=== PATIENT | female | born 1995 | race Caucasian/White ===

== ENCOUNTER 2024-02-13 21:56 | Emergency (ER) | payer MEDICAID, SELFPAY ==
[2024-02-13 22:00] VITALS: BP 113/65; BP 154/100; PULSE 90; PULSE 92; RESP 16; TEMP 36.9; O2SAT 97; BMI 22.9
--- NOTE | 2024-02-13 22:43 | ED_ITS ---
HPI - Medical Clearance General Chief complaint: Medical Clearance Stated complaint: MED CLEARANCE Time Seen by Provider: 02/13/24 22:09 Source: patient Mode of arrival: EMS Limitations: no limitations History of Present Illness ED Provider: brett HPI Narrative: [facility] supposed to be home by 19:30 got late as went to [place] for code and then stopped by to see her daughter comes here for medical clearance patient denied any substance abuse patient is on Suboxone as smokes marijuana Related Information Allergies Allergy/AdvReac Type Severity Reaction Status Date / Time bee pollen [bee stings] Allergy Unknown Verified 02/13/24 22:04 lamotrigine [From Lamictal] Allergy Unknown Verified 02/13/24 22:04 vancomycin Allergy Unknown Verified 02/13/24 22:04 Review of Systems Review of Systems: Yes all other systems are reviewed and are negative [facility] Social History Social History Advance Directives: No Advance Directives Information Provided: No Physical Exam Vital Signs: Vital Signs: Last Vital Signs Temp 97.9 F 02/14/24 01:10 Pulse 76 02/14/24 01:10 Resp 16 02/14/24 01:10 BP 113/66 02/14/24 01:10 Pulse Ox 100 02/14/24 01:10 O2 Del Method Room Air 02/14/24 01:10 BMI result Body Mass Index 22.9 Appearance: Alert. Oriented X3. No acute distress. Eyes: PERRLA, No Nystagmus ENT: Pharynx normal. Oral Mucosa moist Neck: Normal inspection. Neck supple. CVS: Normal heart rate and rhythm. Pulses normal. Respiratory: No respiratory distress. Equal air entry bilateral, no wheez ing/rales/rhonchi Abdomen: Soft and nontender. Bowel sounds are present, no mass palpable, no CVA tenderness Skin: Skin warm and dry. Normal skin color. Normal skin turgor. Extremities: No lower extremity edema. No calf tenderness Neuro: Oriented X 3. No motor deficit. No sensory deficit.No cerebellar signs , cranial nerves II-XII intact Medical Decision Making Medical Decision Making MDM Narrative: Patient medically cleared urine was positive for buprenorphine and THC Lab Data Labs: Lab Results 02/13/24 Range/Units 22:35 Urine Opiates Screen Not Detected (Not Detect) Ur Buprenorphine Scrn Positive H (Not Detect) ng/mL Ur Oxycodone Screen Not Detected (Not Detect) ng/mL Urine Methadone Screen Not Detected (Not Detect) ng/mL Urine Fentanyl Screen Not Detected (Not Detect) Ur Barbiturates Screen Not Detected (Not Detect) Ur Phencyclidine Scrn Not Detected (Not Detect) Ur Amphetamines Screen Not Detected (Not Detect) U Benzodiazepines Scrn Not Detected (Not Detect) Urine Cocaine Screen Not Detected (Not Detect) U Marijuana (THC) Screen POSITIVE H (Not Detect) Discharge Plan Discharge Clinical Impression: Medical clearance for psychiatric admission Patient Disposition: Home, Self-Care Instructions: Medical Clearance for Psychiatric Care (ED) Additional Instructions: Patient's urine positive for THC and buprenorphine Patient is cleared for psych facility Interventions: ED Discharge Assessment Last Done: 02/14/24 01:10 Discharge Date/Time: 02/14/24 01:11 Print Language: Latvian
[2024-02-13 23:57] LABS: Amphetamine Screen Urine Not Detected (Not Detect); Barbiturates, Urine Not Detected (Not Detect); Benzodiazepines Screen Urine Not Detected (Not Detect); Buprenorphine Scr Positive (Not Detect); Cannabinoid Screen Urine POSITIVE (Not Detect); Cocaine Screen Urine Not Detected (Not Detect); Fentanyl, urine Not Detected (Not Detect); Methadone Screen, Urine Not Detected (Not Detect); Opiate Screen Urine Not Detected (Not Detect); Oxycodone Screen Urine Not Detected (Not Detect); Phencyclidine Screen Urine Not Detected (Not Detect)
[2024-02-14 00:41] VITALS: BP 113/66; PULSE 76; RESP 16; TEMP 36.6; O2SAT 100
[2024-02-14 01:10] VITALS: BP 113/66; PULSE 76; RESP 16; TEMP 36.6; O2SAT 100
== END 2024-02-14 01:11 | disposition home or self-care (01) ==
PROVIDERS: Emergency Provider Internal Medicine
DX: Z02.83 Encounter for blood-alcohol and blood-drug test (principal); F11.20 Opioid dependence, uncomplicated
CPT/HCPCS: 80307; 99283